=== PATIENT | male | born 1995 | race Caucasian/White ===

== ENCOUNTER 2023-03-04 19:05 | Emergency (ER) | payer OTHER, SELFPAY ==
[2023-03-04 19:13] VITALS: BP 145/99; PULSE 105; RESP 18; TEMP 37.1; O2SAT 100
--- NOTE | 2023-03-04 19:56 | ED.GENADULT ---
HPI - General Adult General Chief complaint: Skin/Abscess/Foreign Body Stated complaint: Urinary Problem Source: patient Mode of arrival: ambulatory Limitations: no limitations History of Present Illness HPI narrative: Patient presents for evaluation of skin changes to penis, specifically blistered lesions which are new onset. Symptom onset approximately 1 week ago. He indicates he shaved this genitals approximately 2 weeks ago. No history of STI. Denies any associated pain. No dysuria, urethral discharge, testicular pain, fever, chills, nausea, vomiting. He does not believe he has ever had a cold sore. He states the girlfriend's STI testing recently was negative. Related Data Allergies Allergy/AdvReac Type Severity Reaction Status Date / Time No Known Allergies Allergy Verified 03/04/23 19:34 Review of Systems Review of Systems: CONSTITUTIONAL: Denies fever, chills, or sweats. EYES: Denies visual changes, redness, or discharge. ENT: Denies rhinorrhea, congestion, sore throat, or otalgia. CARDIOVASCULAR: Denies chest pain, palpitations, or edema. RESPIRATORY: Denies cough or dyspnea. GASTROINTESTINAL: Denies abdominal pain, nausea, vomiting, or diarrhea. GENITOURINARY: Denies dysuria or hematuria. SKIN: Reports blistered lesions to the penis MUSCULOSKELETAL: Denies back pain, joint pain, or myalgia. NEUROLOGIC: Denies headache, numbness, dizziness, or weakness. PSYCHIATRIC: Denies anxiety or depression. PMFSH Past Medical History Medical History No pertinent past medical history Surgical History Surgical History No pertinent past surgical history Family History Family History Mother Family history non-contributory Social History Social History (Updated 03/04/23 @ 19:59 by Issac Patterson, [facility], ) Smoking status: Never smoker Gender identity (if verbalized by the patient): Male Sexual Orientation (if Verbalized by the Patient): Straight or Heterosexual Spiritual care concerns: No Exam Narrative: GENERAL: Well-appearing, well-nourished, and in no acute distress. HEAD: Normocephalic, atraumatic. EYES: PERRLA and EOMI. ENT: Nares clear, no rhinorrhea or epistaxis. Mucous membranes moist. Oropharynx without tonsillar hypertrophy exudate or other lesions. Bilateral TMs pearly ji nonbulging NECK: Supple. No adenopathy or masses. No carotid bruits or JVD CHEST: Clear to auscultation. No respiratory distress. No wheezes rales or rhonchi HEART: Regular rate and rhythm. No murmur heard. Normal peripheral pulses. ABDOMEN: Soft, nontender, nondistended, normal active bowel sounds. EXTREMITIES: Normal range of motion. No edema. SKIN: There are clusters of vesicular lesions some of which have her opted to the base of the penis. No urethral discharge. No testicular tenderness. NEURO: No focal deficits. Alert and oriented x3. PSYCH: Normal mood and affect. Course Course Emergency Course: This is a 19-year-old male who presented for evaluation of blistered lesions to the penis. I suspect this is HSV. The only in the usual quality is a fact that he does not have any associated pain. I did obtain viral and bacterial cultures. Will start Valtrex. Also provided with a script for cephalexin in the event that this is and impetigo, unlikely. Will check other STI testing as well. Advised he remain abstinent for the time being. Go to the ER for worsening symptoms. Advise he follow up for RPR testing to ensure this is not syphilis. Pt in agreement with plan of care. Level of Care: Express Care Visit Vital Signs Vital signs: Vital Signs Temperature 37.1 C 03/04/23 19:13 Pulse Rate 105 H 03/04/23 19:13 Respiratory Rate 18 03/04/23 19:13 Blood Pressure 145/99 H 03/04/23 19:13 Pulse Oximetry 100 04/2
== END 2023-03-04 19:45 | disposition home or self-care (01) ==
PROVIDERS: Emergency Provider Nurse Practitioner
DX: R21 Rash and other nonspecific skin eruption (principal); B95.8 Unspecified staphylococcus as the cause of diseases classified elsewhere
CPT/HCPCS: 87070; 87147; 87181; 87186; 87205; 87255; 87491; 87591; 87661; 99213; G0463